=== PATIENT | female | born 1970 ===

== ENCOUNTER 2020-08-15 08:02 | Outpatient (CLI) | payer OTHER | END 2020-08-15 12:36 | disposition home or self-care (01) | LOC: LAB 08:02 | DX: Z03.818 Encounter for observation for suspected exposure to other biological agents ruled out (principal) ==

== ENCOUNTER 2020-10-07 07:57 | Outpatient (CLI) | payer OTHER | END 2020-10-07 15:10 | disposition home or self-care (01) | LOC: LAB 07:57 | PROVIDERS: ATTEND Obstetrics & Gynecology Gynecologic Oncology | DX: R97.1 Elevated cancer antigen 125 [CA 125] (principal) ==

== ENCOUNTER 2020-12-19 08:00 | Outpatient (CLI) | payer OTHER | END 2020-12-19 08:30 | disposition home or self-care (01) | LOC: PPH VACUNA 08:00 | PROVIDERS: ATTEND Emergency Medicine Pediatric Emergency Medicine | DX: Z23 Encounter for immunization (principal) ==

== ENCOUNTER 2022-03-05 07:42 | Outpatient (CLI) | payer OTHER | END 2022-03-05 08:15 | disposition home or self-care (01) | LOC: SONOGRAMA 07:42 | PROVIDERS: ATTEND Physical Medicine & Rehabilitation | DX: S53.402A Unspecified sprain of left elbow, initial encounter (principal); M77.12 Lateral epicondylitis, left elbow ==

== ENCOUNTER 2022-11-27 09:40 | Outpatient (CLI) | payer OTHER | END 2022-11-27 09:50 | disposition home or self-care (01) | LOC: PPH VACUNA 09:40 | PROVIDERS: ATTEND Emergency Medicine Pediatric Emergency Medicine | DX: Z23 Encounter for immunization (principal) | CPT/HCPCS: 90686; G0008 ==

== ENCOUNTER 2023-12-16 07:57 | Outpatient (CLI) | payer OTHER ==
[2023-12-16 08:42] LABS: URINE APPEARANCE Clear; URINE BILIRRUBIN Negative (NEGATIVE); URINE BLOOD Negative; URINE COLOR Yellow; URINE GLUCOSE Negative (NEGATIVE); URINE KETONE Negative (NEGATIVE); URINE LEUKOCYTE Negative; URINE NITRATE Negative; URINE PROTEIN Negative (NEGATIVE); URINE UROBILINOGEN 0.2 E.U./dl
[2023-12-16 08:45] LABS: HEMATOCRIT 35.1 % (36.0-45.00); HEMOGLOBIN 11.7 g/dL (12.0-15.00); MEAN CELL VOLUME 83.3 fL (80.00-100.00); MEAN CORPUSCULAR HEMOGLOBIN 27.8 pg (27.00-32.0); MEAN CORPUSCULAR HGB CONC 33.4 g/dl (32.0-36.0); PLATELET COUNT 379 K/uL (150-450); RED BLOOD COUNT 4.21 M/uL (4.00-6.00); RED CELL DISTRIBUTION WIDTH 13.3 % (11.5-14.5)
[2023-12-16 08:46] LABS: URINE BACTERIA 564.4 uL (0.0-1933); URINE EPITHELIAL CELLS 25.4 uL (0.0-38.8); URINE RBC 7.6 uL (0.0-20.8); URINE WBC 11.7 uL (0.0-23.2)
[2023-12-16 08:57] LABS: URINE CAST 0.15 uL (0.0-1.40)
[2023-12-16 09:28] LABS: BILIRUBIN TOTAL 0.37 mg/dL (0.3-1.2); CALCIUM 9.9 mg/dL (8.5-10.1); CREATININE SERUM 0.74 mg/dL (0.55-1.02); GFR 82.41; GLOBULINA 3.3 G/DL (2.4-3.5); POTASSIUM 4.47 mEq/L (3.5-5.1); TOTAL PROTEIN 7.3 gm/dL (6.4-8.2)
[2023-12-18 05:05] LABS: CA 125 8.9 U/mL (0.0-38.1)
== END 2023-12-16 15:23 | disposition home or self-care (01) ==
LOC: LAB 07:57
DX: G89.3 Neoplasm related pain (acute) (chronic) (principal); R97.1 Elevated cancer antigen 125 [CA 125]

== ENCOUNTER 2025-01-12 07:58 | Outpatient (CLI) | payer OTHER | END 2025-01-12 08:03 | disposition home or self-care (01) | LOC: LAB 07:58 | PROVIDERS: ATTEND Obstetrics & Gynecology Gynecologic Oncology | DX: G89.3 Neoplasm related pain (acute) (chronic) (principal) ==